=== PATIENT | male | born 1985 | race Asian ===

== ENCOUNTER 2019-06-03 14:55 | Outpatient (CLI) | payer BC ==
[2019-06-03 16:06] LABS: #Basophils 0.1 thou/uL (0.0-0.2); #Eosinphils 0.1 thou/uL (0.0-0.7); #Lymphocytes 2.3 thou/uL (1.20-3.40); #Monocytes 0.7 thou/uL (0.11-0.59); #Neutrophils 6.3 thou/uL (1.40-6.50); %Basophils 0.7 % (0.0-1.0); %Eosinophils 0.7 % (0.0-10.0); %Lymphocytes 24.1 % (21.0-51.0); %Monocytes 7.6 % (0.0-10.0); Hemoglobin 15.9 g/dL (14.0-18.0); Mean Corpuscular HGB CONC 33.6 g/dL (32.0-36.0); Mean Corpuscular Volume 86.2 fL (78.0-98.0); Mean Platelet Volume 6.9 fL (7.4-10.4); Platelet Count 197 thou/uL (130-400); RBC Distribution Width 12.2 % (11.5-14.5); Red Blood Cell (RBC) Count 5.47 mill/uL (4.70-6.10); White Blood Cell (WBC) Count 9.5 thou/uL (4.8-10.8)
== END 2019-06-03 14:56 | disposition home or self-care (01) ==
LOC: LABBT 14:55
PROVIDERS: ATTEND Surgery
DX: Z01.812 Encounter for preprocedural laboratory examination (principal); K40.90 Unilateral inguinal hernia, without obstruction or gangrene, not specified as recurrent
CPT/HCPCS: 85025

== ENCOUNTER 2019-06-05 06:07 | Day surgery (SDC) | payer BC ==
[2019-06-03 15:35] VITALS: BMI 24.7
[2019-06-05] MEDS ORDERED: EPINEPHrine 1 MG/ML AMP ONE (06:33)
[2019-06-05] MEDS ORDERED: Bupivacaine 0.25% HCL 30 ML VIAL ONE (06:33)
[2019-06-05] MEDS ORDERED: Fentanyl 100 MCG/2 ML VIAL ONE (07:17)
[2019-06-05] MEDS ORDERED: Meperidine HCl/PF 25 MG/ML VIAL ONE (08:21)
[2019-06-05] MEDS ORDERED: Ondansetron PF 4 MG/2 ML Vial ONE (11:58)
[2019-06-05] MEDS ORDERED: PROPOFOL 200 MG/20 ML VIAL ONE (11:58)
[2019-06-05] MEDS ORDERED: Glycopyrrolate 0.2 MG/ML 5 ML SYRINGE ONE (11:58)
[2019-06-05] MEDS ORDERED: Lidocaine 1% PF 5 ML VIAL ONE (11:58)
[2019-06-05] MEDS ORDERED: Dexamethasone 20 MG/5 ML VIAL ONE (11:58)
--- NOTE | 2019-06-05 13:54 | OP ---
DATE OF PROCEDURE: 06/05/2019 PREOPERATIVE DIAGNOSIS: Right inguinal hernia. PROCEDURE PERFORMED: Right inguinal hernia repair with mesh. INDICATIONS: A 34-year-old male who developed a painful bulge in the right groin, found to have a hernia. FINDINGS: Indirect right inguinal hernia. DESCRIPTION OF PROCEDURE: After informed consent was obtained, the patient was taken to the operating room, given general mask anesthesia, placed in supine position. His groin area was prepped and draped in usual fashion. Local anesthesia infiltrated subcutaneously and deep. A transverse skin incision was performed, subcu divided sharply. The fascia of the external oblique was incised in direction of its fibers through the external ring. Spermatic cord was isolated with a Facundo drain. Cremasteric fibers . The hernia sac found. This was dissected from surrounding cord structures down to the internal ring. It was reduced, reduction was maintained with a PHS hernia system placed in the preperitoneal space. Anterior was laid out, sutured to the pubic tubercle medially, tucked under the external oblique fascia laterally. The cord placed anatomically. Hemostasis assured. The external oblique fascia was closed with a running 3-0 Vicryl. Ashley was closed with interrupted 3-0 Vicryl and the skin closed with a running subcuticular 4-0 Rapide. Steri-Strips applied. Sterile bandage applied. The patient tolerated the procedure well, transferred to Recovery in good condition. Sponge and needle count verified correct x2. Job ID: [id number]
== END 2019-06-05 10:15 | disposition home or self-care (01) ==
LOC: SDC 06:07 → EDSEX 15:30
PROVIDERS: ATTEND Surgery
PROC: 0YU50JZ Supplement Right Inguinal Region with Synthetic Substitute, Open Approach (ICD-10-PCS; principal; 2019-06-05)
DX: K40.90 Unilateral inguinal hernia, without obstruction or gangrene, not specified as recurrent (principal); Z88.2 Allergy status to sulfonamides
CPT/HCPCS: C1781; J0171; J0690; J1100; J2001; J2175; J2405; J2704; J3010; S0020